=== PATIENT | male | born 1955 | race Caucasian/White ===

== ENCOUNTER 2017-01-21 19:32 | Emergency (ER) | payer OTHER ==
[2017-01-21 21:59] VITALS: BP 133/83
== END 2017-01-21 21:59 | disposition home or self-care (01) ==
LOC: ED 19:32
DX: M70.22 Olecranon bursitis, left elbow (principal); I10 Essential (primary) hypertension; Y93.89 Activity, other specified
CPT/HCPCS: J1885

== ENCOUNTER 2018-01-10 16:16 | Emergency (ER) | payer OTHER ==
[~2018-01-10] VITALS: Ht 157.5 cm; Wt 96.2 kg
[2018-01-10 16:17] VITALS: Ht 157.5 cm; Wt 96.2 kg
[2018-01-10 18:17] VITALS: BP 143/87
== END 2018-01-10 18:17 | disposition home or self-care (01) ==
LOC: ED 16:16
DX: S51.812A Laceration without foreign body of left forearm, initial encounter (principal); I10 Essential (primary) hypertension; R73.03 Prediabetes; N40.0 Benign prostatic hyperplasia without lower urinary tract symptoms; W45.8XXA Other foreign body or object entering through skin, initial encounter; Y93.89 Activity, other specified; Y92.89 Other specified places as the place of occurrence of the external cause; Y99.8 Other external cause status
CPT/HCPCS: J1885; J2001

== ENCOUNTER 2018-09-07 23:49 | Emergency (ER) | payer OTHER ==
[~2018-09-07] VITALS: Ht 162.6 cm; Wt 92.1 kg
[2018-09-07 23:56] VITALS: BP 124/83; Ht 162.6 cm; Wt 92.1 kg
== END 2018-09-08 02:18 | disposition home or self-care (01) ==
LOC: ED 23:49
DX: B34.9 Viral infection, unspecified (principal); I10 Essential (primary) hypertension; E11.9 Type 2 diabetes mellitus without complications
CPT/HCPCS: J0780; J1885

== ENCOUNTER 2018-09-11 17:13 | Emergency (ER) | payer OTHER ==
[~2018-09-11] VITALS: Ht 167.6 cm; Wt 88.5 kg
[2018-09-11 17:26] VITALS: Ht 167.6 cm; Wt 88.5 kg
[2018-09-11 18:17] LABS: BASOPHIL % 0.7 % (0-2); PLATELET COUNT 200 x10^3mcL (130-400); RED CELL DISTRIBUTION WIDTH 13.1 % (11.5-14.5)
[2018-09-11 18:20] LABS: CALCIUM 9.1 mg/dL (8.5-10.1); CREATININE SERUM 1.6 mg/dL (0.7-1.3)
[2018-09-11 18:25] LABS: BILIRUBIN TOTAL 0.63 mg/dL (0.20-1.00); TOTAL PROTEIN, SERUM 7.3 g/dL (6.4-8.2)
[2018-09-11 18:29] LABS: ALBUMIN 3.1 g/dL (3.4-5.0)
[2018-09-11 19:43] LABS: microscopic required? NO
[2018-09-11 19:55] LABS: UA SPECIFIC GRAVITY 1.025 (1.005-1.035); urine erythrocyte NEGATIVE (NEGATIVE)
[2018-09-11 20:33] VITALS: BP 131/80
== END 2018-09-11 20:33 | disposition home or self-care (01) ==
LOC: ED 17:13
PROVIDERS: Emergency Medicine
DX: R19.7 Diarrhea, unspecified (principal); R11.0 Nausea; R51 Headache; I10 Essential (primary) hypertension; E11.9 Type 2 diabetes mellitus without complications; Z90.89 Acquired absence of other organs; Z90.49 Acquired absence of other specified parts of digestive tract
CPT/HCPCS: 87046; 87046-59; J7030

== ENCOUNTER 2019-12-13 17:33 | Emergency (ER) | payer OTHER, SELFPAY ==
[~2019-12-13] VITALS: Ht 167.6 cm; Wt 93.0 kg
[~2019-12-13 17:33] MED LIST: DECADRON6 MG PO; ELIQUIS5 M1 PO
[2019-12-13 17:37] VITALS: Ht 167.6 cm; Wt 93.0 kg
[2019-12-14 01:29] VITALS: BP 125/67
[2019-12-14 03:20] LABS: CARBON DIOXIDE 19.7 mmol/L (21-32); CHLORIDE SERUM 91 mmol/L (98-107); POTASSIUM SERUM 3.6 mmol/L (3.5-5.1); SODIUM SERUM 125 mmol/L (136-145)
[2019-12-14 03:21] LABS: AST/SGOT 33 U/L (15-37); BILIRUBIN TOTAL 0.6 mg/dL (0.20-1.00); CREATININE SERUM 1.2 mg/dL (0.7-1.3); GFR1 > 60 mL/min; GLUCOSE SERUM 214 mg/dL (74-106); TOTAL PROTEIN, SERUM 7.5 g/dL (6.4-8.2)
[2019-12-14 03:22] LABS: ALKALINE PHOSPHATASE 100 U/L (46-116); ALT/SGPT 75 U/L (16-63)
[2019-12-14 03:41] LABS: CARBON DIOXIDE 23.2 mmol/L (21-32); POTASSIUM SERUM 4.3 mmol/L (3.5-5.1)
[2019-12-14 03:42] LABS: CALCIUM 8.6 mg/dL (8.5-10.1); CREATININE SERUM 1.4 mg/dL (0.7-1.3)
[2019-12-14 04:35] LABS: PLATELET COUNT 197 x10^3mcL (130-400); RED CELL DISTRIBUTION WIDTH 13.5 % (11.5-14.5)
[2019-12-14 04:36] LABS: BASOPHIL % 0 % (0-2)
== END 2019-12-14 01:20 | disposition home or self-care (01) ==
LOC: ED 17:33
PROVIDERS: Student in an Organized Health Care Education/Training Program
DX: U07.1 COVID-19 (principal); J12.89 Other viral pneumonia; I10 Essential (primary) hypertension; E11.9 Type 2 diabetes mellitus without complications
CPT/HCPCS: J8540; Q0092

== ENCOUNTER 2020-03-18 19:12 | Emergency (ER) | payer OTHER ==
[~2020-03-18] VITALS: Ht 167.6 cm; Wt 89.9 kg
[2020-03-18 19:58] VITALS: BP 165/96
== END 2020-03-18 19:58 | disposition home or self-care (01) ==
LOC: ED 19:12
DX: S80.812A Abrasion, left lower leg, initial encounter (principal); I10 Essential (primary) hypertension; E11.9 Type 2 diabetes mellitus without complications; X58.XXXA Exposure to other specified factors, initial encounter; Y93.89 Activity, other specified; Y92.89 Other specified places as the place of occurrence of the external cause; Y99.8 Other external cause status
CPT/HCPCS: 90715

== ENCOUNTER 2020-03-27 14:39 | Emergency (ER) | payer OTHER ==
[~2020-03-27] VITALS: Ht 167.6 cm; Wt 90.7 kg
[2020-03-27 14:48] VITALS: Ht 167.6 cm; Wt 90.7 kg
[2020-03-27 16:03] VITALS: BP 128/71
== END 2020-03-27 16:03 | disposition home or self-care (01) ==
LOC: ED 14:39
DX: M79.662 Pain in left lower leg (principal); Z48.01 Encounter for change or removal of surgical wound dressing